=== PATIENT | male | born 1985 | race Caucasian/White ===

== ENCOUNTER 2017-01-07 09:58 | Inpatient (IN) | payer OTHER ==
[2017-01-07] MEDS ORDERED: ONDANSETRON 4 MG/2 ML VIAL IVPB ONE (10:24)
[2017-01-07] MEDS ORDERED: FAMOTIDINE 20 MG/50 ML IVPB 50 ML IVPB ONE (10:24)
[2017-01-07] MEDS ORDERED: ACETAMINOPHEN 1000 MG/100 ML VIAL (NON FORMULARY) IVPB ONE (10:24)
[2017-01-07] MEDS ORDERED: SODIUM CHLORIDE 1,000 ML IV STA (10:24)
[2017-01-07] MEDS ORDERED: MAG HYDROX/AL HYDROX/SIMETH 30 ML UNIT-DOSE CUP PO ONE (10:24)
--- NOTE | 2017-01-07 10:43 | PDOC ---
History of Present Illness - General History Source: Patient Exam Limitations: No Limitations - History of Present Illness Initial Comments: 01/07/17 11:00 Patient is a 31-year-old male with significant past medical history of Suboxone (discontinued), asthma, Lung collapse (March 2016) who presents to the ED with complaints of with Stomach pain, nausea, vomiting and diarrhea beginning yesterday. Patient reports right upper quadrant abdominal pain beginning yesterday secondary to 2 episodes of diarrhea and multiple episodes of vomiting. Patient states he went to [facility] where he was given a CAT scan of his head and a CAT of his abdomen and was reported negative. He states that the stomach pain radiates into his chest. Patient reports potential contact with sick neighbors in apartment building. Denies shortness of breath, dizziness. Denies traveling, recent drug use. Denies history of gallbladder complications. Allergies: Penicillin <Asher Harman - Last Filed: 01/07/17 11:00> - General History Source: Patient Exam Limitations: No Limitations <Fransico Vega - Last Filed: 01/07/17 14:29> - General Chief Complaint: Pain Stated Complaint: VOMITING Time Seen by Provider: 01/07/17 10:14 Past History <Asher Harman - Last Filed: 01/07/17 11:00> - Past Medical History Asthma: Yes - Surgical History Lung Surgery: Yes (rt.side lung) - Psycho/Social/Smoking Cessation Hx Suicidal Ideation: No Smoking History: Current every day smoker Have you smoked in the past 12 months: Yes Number of Cigarettes Smoked Daily: 6 Information on smoking cessation initiated: No Hx Alcohol Use: No Drug/Substance Use Hx: No <Fransico Vega - Last Filed: 01/07/17 14:29> - Past Medical History Allergies/Adverse Reactions: Allergies Allergy/AdvReac Type Severity Reaction Status Date / Time Penicillins Allergy Verified 01/07/17 10:32 Home Medications: Ambulatory Orders NK [No Known Home Medication] 01/07/17 Review of Systems - Review of Systems Able to Perform ROS?: Yes Comments:: 01/07/17 11:00 GENERAL/CONSTITUTIONAL: No fever or chills. No weakness. HEAD, EYES, EARS, NOSE AND THROAT: No change in vision. No ear pain or discharge. No sore throat. CARDIOVASCULAR: + Chest pain No shortness of breath. RESPIRATORY: No cough, wheezing, or hemoptysis. GASTROINTESTINAL: + Nausea, + Vomiting, + Diarrhea. No constipation. GENITOURINARY: No dysuria, frequency, or change in urination. MUSCULOSKELETAL: + Abdominal pain No joint or muscle swelling or pain. No neck or back pain. SKIN: No rash NEUROLOGIC: No headache, vertigo, loss of consciousness, or change in strength/ sensation. ENDOCRINE: No increased thirst. No abnormal weight change. HEMATOLOGIC/LYMPHATIC: No anemia, easy bleeding, or history of blood clots. ALLERGIC/IMMUNOLOGIC: No hives or skin allergy. All Other Systems: Reviewed and Negative <Asher Harman - Last Filed: 01/07/17 11:00> *Physical Exam - Vital Signs Last Vital Signs Temp Pulse Resp BP Pulse Ox 98.8 F 105 H 18 148/67 99 01/07/17 10:13 01/07/17 10:13 01/07/17 10:13 01/07/17 10:13 01/07/17 10:13 - Physical Exam Comments: 01/07/17 11:00 GENERAL: Awake, alert, and fully oriented, in no acute distress HEAD: No signs of trauma EYES: PERRLA, EOMI, sclera anicteric, conjunctiva clear ENT: Auricles normal inspection, hearing grossly normal, nares patent, oropharynx clear without exudates. Moist mucosa NECK: Normal ROM, supple, no lymphadenopathy, JVD, or masses LUNGS: Breath sounds equal, clear to auscultation bilaterally. No wheezes, and no crackles HEART: Regular rate and rhythm, normal S1 and S2, no murmurs, rubs or gallops ABDOMEN: + Right Upper Quadrant Pain. + Tender to palpation. + Chung's sign positive. Soft, nontender, normoactive bowel sounds. No guarding, no rebound. No masses EXTREMITIES: Normal range of motion, no edema. No clubbing or cyanosis. No cords, erythema, or tenderness NEUROLOGICAL: Cranial nerves II through XII grossly intact. Normal speech, normal gait SKIN: Warm, Dry, normal turgor, no rashes or lesions noted. <Asher Harman - Last Filed: 01/07/17 11:00> - Vital Signs Last Vital Signs Temp Pulse Resp BP Pulse Ox 98.8 F 105 H 18 148/67 99 01/07/17 10:13 01/07/17 10:13 01/07/17 10:13 01/07/17 10:13 01/07/17 10:13 <Fransico Vega - Last Filed: 01/07/17 14:29> ED Treatment Course - LABORATORY CBC & Chemistry Diagram: 01/07/17 10:26 01/07/17 10:26 - Medications Given in the ED: ED Medications Discontinued Medications Generic Name Dose Route Start Last Admin Trade Name David PRN Reason Stop Dose Admin Al Hydroxide/Mg Hydroxide 30 ml 01/07/17 10:24 01/07/17 10:52 Mylanta Oral Suspension - PO 01/07/17 10:25 30 ml ONCE ONE Administration Famotidine/Sodium Chloride 50 mls @ 100 mls/hr 01/07/17 10:24 01/07/17 10:53 Pepcid 20 Mg Premixed Ivpb - IVPB 01/07/17 10:53 100 mls/hr ONCE ONE Administration Ondansetron HCl 4 mg 01/07/17 10:24 01/07/17 10:53 Zofran Injection IVPB 01/07/17 10:25 4 mg ONCE ONE Administration <Asher Harman - Last Filed: 01/07/17 11:00> - LABORATORY CBC & Chemistry Diagram: 01/07/17 10:26 01/07/17 10:26 - RADIOLOGY Radiology Studies Ordered: Category Date Time Status CHEST X-RAY PORTABLE* [RAD] Stat Radiology 01/07/17 10:25 Ordered <Fransico Vega - Last Filed: 01/07/17 14:29> Medical Decision Making - Medical Decision Making 01/07/17 10:28 A portion of this note was documented by scribe services under my direction. I have reviewed the details of the note, within reason, and agree with the documentation with the following case summary and management plan written by me. Patient treated in the ED. Nursing notes are reviewed and incorporated into the medical decision-making. Vital signs reviewed. Peripheral IV access obtained by the nurse, laboratory studies are drawn and sent, reviewed and interpreted by myself. Vital Signs Temp Pulse Resp BP Pulse Ox 98.8 F 105 H 18 148/67 99 01/07/17 10:13 01/07/17 10:13 01/07/17 10:13 01/07/17 10:13 01/07/17 10:13 31-year-old male patient with past medical history of Suboxone use now discontinued, history of asthma and history of spontaneous right-sided pneumothorax several months ago presents with upper abdominal pain and nausea and vomiting and diarrhea since yesterday. Patient is started developing severe upper abdominal pain with 2 episodes of loose stools and multiple episodes of vomiting. Denies fevers or chills. Stated that he developed right sided upper abdominal pain. He went to [facility] where he was reportedly obtain a CAT scan of the head and CAT scan of the abdomen pelvis which was reportedly negative. However, patient continues to have persistent pain. States that the pain radiates into his chest. Believes that there may be potential sick contacts with a friend. He is unaware of any history of gallstones. Denies any recent drug use. Differential includes gastroenteritis, pancreatitis, cholecystitis. We'll obtain labs, treat symptoms and give IV fluids. We'll also obtain a right upper quadrant showed reassess. 01/07/17 13:37 CBC, BMP 01/07/17 10:26 01/07/17 10:26 CMP Sodium 139 mmol/L (136-145) 01/07/17 10:26 Potassium 4.3 mmol/L (3.5-5.1) 01/07/17 10:26 Chloride 103 mmol/L (98-107) 01/07/17 10:26 Carbon Dioxide 29 mmol/L (21-32) 01/07/17 10:26 Anion Gap 7 (8-16) L 01/07/17 10:26 BUN 15 mg/dL (7-18) 01/07/17 10:26 Creatinine 1.2 mg/dL (0.7-1.3) 01/07/17 10:26 Creat Clearance w eGFR > 60 (>60) 01/07/17 10:26 Random Glucose 112 mg/dL (74-106) H 01/07/17 10:26 Calcium 9.7 mg/dL (8.5-10.1) 01/07/17 10:26 Phosphorus 1.1 mg/dL (2.5-4.9) L* 01/07/17 10:26 Magnesium 2.1 mg/dL (1.8-2.4) 01/07/17 10:26 Total Bilirubin 0.9 mg/dL (0.2-1.0) 01/07/17 10:26 AST 46 U/L (15-37) H 01/07/17 10:26 ALT 36 U/L (12-78) 01/07/17 10:26 Alkaline Phosphatase 63 U/L (45-117) 01/07/17 10:26 Total Protein 7.6 g/dl (6.4-8.2) 01/07/17 10:26 Albumin 4.2 g/dl (3.4-5.0) 01/07/17 10:26 Lipase 128 U/L (73-393) 01/07/17 10:26 Urine Test Results Urine Color Yellow 01/07/17 10:26 Urine Appearance Clear 01/07/17 10:26 Urine pH 7.0 (5.0-8.0) 01/07/17 10:26 Urine Protein Negative (NEGATIVE) 01/07/17 10:26 Urine Glucose (UA) Negative (NEGATIVE) 01/07/17 10:26 Urine Ketones Trace (NEGATIVE) H 01/07/17 10:26 Urine Blood Negative (NEGATIVE) 01/07/17 10:26 Urine Nitrite Negative (NEGATIVE) 01/07/17 10:26 Urine Bilirubin Negative (NEGATIVE) 01/07/17 10:26 Ur Leukocyte Esterase Negative (NEGATIVE) 01/07/17 10:26 Labs reviewed. Phos 1.1. PhosK repletion ordered. Pt continues to have persistent nausea and vomiting and abdominal pain despite the medications. RUQ ultrasound demonstrates no acute findings. I had called and spoken to Dr. Son from [facility]. The patient had a head CT which was negative. The patient had an abdominal KUB which showed mild dilated loops in left upper abdominal pain. Subsequently, had a CT abdomen and pelvis obtained with contrast (in the evening) which was negative. Given the patient has persistent pain and not improved, decision was made to obtain a repeat abdomen and pelvis CT abdomen and pelvis. 01/07/17 14:27 CT shows colitis and pulmonary nodule. Results given to the patient. He is aware of both findings. IV levaquin and flagyl ordered. I instructed the patient that this is likely infectious but cannot rule out IBD. Pt verbalizes understanding. Unable to tolerate PO. Case was discussed with [facility] hospitalist. Will admit to med/surg admission. <Fransico Vega - Last Filed: 01/07/17 14:29> *DC/Admit/Observation/Transfer - Attestations Scribe Attestion: 01/07/17 11:01 Documentation prepared by Asher Harman, acting as veterinary medical officer for Fransico Vega MD. <Asher Harman - Last Filed: 01/07/17 11:00> - Discharge Dispostion Admit: Yes <Fransico Vega - Last Filed: 01/07/17 14:29> Diagnosis at time of Disposition: Colitis - Discharge Dispostion Condition at time of disposition: Stable
[2017-01-07 10:53] LABS: BASOPHIL 0.4 % (0-2.0); EOSINOPHIL 0.6 % (0-4.5); MCH 30.2 pg (25.7-33.7); MCHC 33.2 g/dl (32.0-35.9); MEAN CELL VOLUME 91.1 fl (80-96); MEAN PLT VOLUME 8.4 fl (7.5-11.1); PLATELET COUNT 295 K/MM3 (134-434); RDW 14.1 % (11.9-15.9); WHITE BLOOD COUNT 9.1 K/mm3 (4.0-10.0)
[2017-01-07] MEDS: SUCRALFATE 1 GM TABLET (FP) PO SCH ×2 (10:53→21:39)
[2017-01-07] MEDS ORDERED: MAG HYDROX/AL HYDROX/SIMETH 30 ML UNIT-DOSE CUP ONE (10:55)
[2017-01-07 11:22] LABS: ALBUMIN 4.2 g/dl (3.4-5.0); ANION GAP 7 (8-16); BILIRUBIN,TOTAL 0.9 mg/dL (0.2-1.0); CALCIUM 9.7 mg/dL (8.5-10.1); CO2 29 mmol/L (21-32); CREATININE 1.2 mg/dL (0.7-1.3); GLUCOSE,RANDOM 112 mg/dL (74-106); MAGNESIUM 2.1 mg/dL (1.8-2.4); SGOT/AST 46 U/L (15-37); SGPT/ALT 36 U/L (12-78); TOT PROT 7.6 g/dl (6.4-8.2)
[2017-01-07 11:26] LABS: URINE APPEARANCE CLEAR; URINE BILIRUBIN NEGATIVE (NEGATIVE); URINE BLOOD NEGATIVE (NEGATIVE); URINE GLUCOSE (UA) NEGATIVE (NEGATIVE); URINE KETONE TRACE (NEGATIVE); URINE LEUK ESTERASE NEGATIVE (NEGATIVE); URINE NITRITE NEGATIVE (NEGATIVE); URINE PROTEIN NEGATIVE (NEGATIVE); URINE UROBILINOGEN 0.2 mg/dL (0.2-1.0)
[2017-01-07 11:28] LABS: ALK PHOS 63 U/L (45-117)
[2017-01-07 11:34] LABS: PHOSPHOROUS 1.1 mg/dL (2.5-4.9)
[2017-01-07 11:35] LABS: URINE COLOR YELLOW
[2017-01-07] MEDS ORDERED: NAPH,MB-DB/K PH,MBDB POWDER PACKET PO ONE (11:36)
[2017-01-07] MEDS ORDERED: METOCLOPRAMIDE HCL INJECTION 10 MG/2 ML VIAL IVPB ONE (12:11)
[2017-01-07] MEDS ORDERED: METOCLOPRAMIDE HCL INJECTION 10 MG/2 ML VIAL ONE (12:15)
[2017-01-07] MEDS ORDERED: PANTOPRAZOLE SODIUM 40 MG in SODIUM CHLORIDE 100 ML IVPB ONE (12:20)
[2017-01-07] MEDS ORDERED: PANTOPRAZOLE SODIUM 100 ML IVPB ONE (12:46)
[2017-01-07] MEDS ORDERED: METRONIDAZOLE 500 MG PREMIXED 100 ML IVPB ONE ×2 (13:55→14:08)
[2017-01-07] MEDS ORDERED: LEVOFLOXACIN 500 MG IVPB 100 ML IVPB ONE ×2 (13:55→14:08)
[2017-01-07] MEDS: SODIUM CHLORIDE 1,000 ML IV SCH (14:16)
[2017-01-07] MEDS ORDERED: ACETAMINOPHEN 325 MG TABLET (FP) PO PRN (14:32)
[2017-01-07] MEDS ORDERED: ONDANSETRON 4 MG/2 ML VIAL IVPB PRN (14:32)
[2017-01-07] MEDS ORDERED: DEXTROSE 5%-0.45% SALINE 1,000 ML IV SCH (14:45)
--- NOTE | 2017-01-07 16:12 | HP ---
CHIEF COMPLAINT: stomach pain and vomiting. PCP: none HISTORY OF PRESENT ILLNESS: 31 yo M with significant PMHx of asthma, suboxone(discontinued one month ago), Lung collapse (), presents to ER with two day history of abdominal pain , nausea, vomiting and diarrhea. Patient initially went yesterday for right upper quadrant pain to [facility] where CT abdomen and head were both reportedly negative. Patient was discharged home. He continue to have vomiting which he describes as "yellow and thick".He also has had approx 6-8 loose non bloody BM's. He describes his pain as sharp 8/10 Right upper quadrant pain that radiates to right chest. No alleviating factors and aggravated by movement. No history of gallbladder. He denies any association with food but is unable to hold any food down. He also endorses bilateral elbow pain and soreness. He denies any fever, chills, sick contacts or recent antibiotic use. He also mentions that he has been having sex with HIV positive girlfriend for which he has used protection. Denies CP, DUNHAM, SOB, or palpitations. ER course was notable for: (1)CT abdomen shows diffuse colitis of splenic flexure into the rectosigmoid colonm with mild pericolonic fat stranding. (2)RUQ US was negative for stones of acute cholecystitis. (3)Given Levaquin and Flagyl x1 (4)CT abdomen also showed 8mm nodular opacity of anterior right lung base which is located along the oblique fissure. Recent Travel: He is in [employer] and just returned from 3 day stay in [facility]. PAST MEDICAL HISTORY: asthma, suboxone(discontinued one month ago), Lung collapse PAST SURGICAL HISTORY: Chest tube (2015) Social History: Smoking: smokes 5 cig/day Alcohol:few beers/day Drugs: smokes marijuana occasionally and previously snorted heroin 5yrs ago and recently stopped suboxone one month ago. Family History: Mother(DM and HTN) Father(DM) Allergies Penicillins Allergy (Verified 01/07/17 10:32) HOME MEDICATIONS: Home Medications Medication Instructions Recorded NK [No Known Home Medication] 01/07/17 REVIEW OF SYSTEMS CONSTITUTIONAL: Absent: fever, chills, diaphoresis, generalized weakness, malaise, loss of appetite, weight change HEENT: Absent: rhinorrhea, nasal congestion, throat pain, throat swelling, difficulty swallowing, mouth swelling, ear pain, eye pain, visual changes CARDIOVASCULAR: Absent: chest pain, syncope, palpitations, irregular heart rate, lightheadedness , peripheral edema RESPIRATORY: Absent: cough, shortness of breath, dyspnea with exertion, orthopnea, wheezing, stridor, hemoptysis GASTROINTESTINAL:abdominal pain, nausea, vomiting, diarrhea Absent: , abdominal distension, , constipation, melena, hematochezia GENITOURINARY: Absent: dysuria, frequency, urgency, hesitancy, hematuria, flank pain, genital pain MUSCULOSKELETAL: joint swelling(elbows bilaterally) Absent: myalgia, arthralgia, , back pain, neck pain SKIN: Absent: rash, itching, pallor HEMATOLOGIC/IMMUNOLOGIC: Absent: easy bleeding, easy bruising, lymphadenopathy, frequent infections ENDOCRINE: Absent: unexplained weight gain, unexplained weight loss, heat intolerance, cold intolerance NEUROLOGIC: Absent: headache, focal weakness or paresthesias, dizziness, unsteady gait, seizure, mental status changes, bladder or bowel incontinence PSYCHIATRIC: Absent: anxiety, depression, suicidal or homicidal ideation, hallucinations. PHYSICAL EXAMINATION Vital Signs - 24 hr 01/07/17 15:31 Temperature 99.7 F H Pulse Rate [ 90 Left Apical] Respiratory 18 Rate Blood Pressure 129/78 [Left Arm] O2 Sat by Pulse 100 Oximetry (%) GENERAL: Awake, alert, and fully oriented, mild distress. HEAD: Normal with no signs of trauma. EYES: Pupils equal, round and reactive to light, extraocular movements intact, sclera anicteric, conjunctiva clear. No lid lag. EARS, NOSE, THROAT: Ears normal, nares patent, oropharynx clear without exudates.Dry mucous membranes. NECK: Normal range of motion, supple without lymphadenopathy, JVD, or masses. LUNGS: Decreased breath sounds right lung base. No wheezes, and no crackles. No accessory muscle use. HEART: Regular rate and rhythm, normal S1 and S2 without murmur, rub or gallop. ABDOMEN: Soft,RUQ tenderness,(+Chung), not distended, normoactive bowel sounds , no guarding, no rebound, no masses. No hepatomegaly or splenomegaly. ALBA: NO stool or blood in rectal vault. MUSCULOSKELETAL: Normal range of motion at all joints. No bony deformities or tenderness. No CVA tenderness. UPPER EXTREMITIES: 2+ pulses, warm, well-perfused. No cyanosis. No clubbing. No peripheral edema. LOWER EXTREMITIES: 2+ pulses, warm, well-perfused. No calf tenderness. No peripheral edema. NEUROLOGICAL: Cranial nerves II-XII intact. Normal speech. gait not observed. PSYCHIATRIC: Cooperative. Good eye contact. Appropriate mood and affect. SKIN: Warm, dry, normal turgor, no rashes or lesions noted, normal capillary refill. Laboratory Tests 01/07/17 01/07/17 01/07/17 10:26 10:26 10:26 WBC 9.1 RBC 4.86 Hgb 14.7 Hct 44.3 MCV 91.1 MCH 30.2 MCHC 33.2 RDW 14.1 Plt Count 295 MPV 8.4 Neutrophils % 74.0 Lymphocytes % 19.7 Monocytes % 5.3 Eosinophils % 0.6 Basophils % 0.4 Sodium 139 Potassium 4.3 Chloride 103 Carbon Dioxide 29 Anion Gap 7 L BUN 15 Creatinine 1.2 Creat Clearance w eGFR > 60 Random Glucose 112 H Calcium 9.7 Phosphorus 1.1 L* Magnesium 2.1 Total Bilirubin 0.9 AST 46 H ALT 36 Alkaline Phosphatase 63 Total Protein 7.6 Albumin 4.2 Lipase 128 Urine Color Yellow Urine Appearance Clear Urine pH 7.0 Ur Specific [place] 1.020 Urine Protein Negative Urine Glucose (UA) Negative Urine Ketones Trace H Urine Blood Negative Urine Nitrite Negative Urine Bilirubin Negative Urine Urobilinogen 0.2 Ur Leukocyte Esterase Negative IMAGING: * [id number] CT/ABDOMEN PELVIS CT W/O CONTR EXAM: CT ABDOMEN AND PELVIS WITHOUT IV CONTRAST. INDICATION: Epigastric abdominal pain. TECHNIQUE: Contiguous axial CT images of the abdomen and pelvis were obtained with oral contrast and without intravenous contrast. Coronal and sagittal reconstructions obtained. COMPARISON: No priors CT abdomen/pelvis. Correlation made to the right upper quadrant ultrasound performed on the same day. FINDINGS: Evaluation of the solid viscera, vessels and lymph nodes is limited without contrast. There is linear scarring versus atelectasis in the right middle lobe and right lower lobe. There is a 4 mm solid nodule in the lateral segment of the right middle lobe (image 12 of series 4). There is a pleural-based 8 mm nodular opacity in the anterior right lung base (image 7 of series 4) , which is located along the oblique fissure. Although nonspecific, this 8 mm nodule could represent an intraparenchymal lymph node. The heart is normal in size. The liver is normal in size and contour. The gallbladder is not pathologically distended. The common bile duct is not dilated. The unopacified pancreas is unremarkable. The spleen is normal in size. There is no mass in the adrenal glands. The kidneys are normal in size without hydronephrosis. There is no renal or ureteral calculus. Difficult to assess the retroperitoneum for lymphadenopathy or soft tissue mass due to lack of intravenous contrast and paucity of fat. The abdominal aorta does however to be of normal caliber. There is long segment annular wall thickening throughout the majority of the colon, which is most notable from the splenic flexure into the rectosigmoid junction, with mild pericolonic fat stranding. Multiple volume of free fluid in pelvis is presumably reactive. There is a normal- appearing appendix in the right lower quadrant. There is no gross free intraperitoneal air. There is circumferential thickening of the urinary bladder wall, some of which may be attributed to under distention. The prostate gland is nonenlarged. There is no acute fracture in the visualized osseous structures. Punctate enostosis noted in the intertrochanteric region of the proximal left femur and also within the posterior left iliac bone. IMPRESSION: 1. Colitis involving the majority of the colon as described above. This may be due to infectious or inflammatory etiology. C. Difficile colitis may be considered in the appropriate clinical setting. Please correlate clinically. 2. Circumferential thickening of the urinary bladder wall may be due to under distention and/or cystitis. Please correlate clinically with urinalysis. 3. Nonspecific right middle lobe and right lower lobe pulmonary nodular opacities measuring up to 8 mm, as described above. Continued follow-up with low-dose chest CT is recommended. Reported By: Eunice Zhao MD 01/07/17 2999 ASSESSMENT/PLAN: 31 yo M with significant PMHx of asthma, suboxone(discontinued one month ago), Lung collapse () admitted to [facility] for acute colitis. Problem List - Problem (1) Colitis Assessment/Plan: * CT shows acute colitis - inflammatory vs. infectious. * NO fever or white counts. * Will send stool studies including C-diff for antigen and ab * Started on Levaquin and Flagyl in ED. * WIll consult GI seen by Dr. Garcia at [facility] - last EGD and Colonoscopy done in 2015 * NPO for now (2) Lung nodule Assessment/Plan: * CT abdomen reveled 8mm nodule * Will consult pulmonary for further w/u (3) Hypophosphatemia Assessment/Plan: * will replete with IV NaPhos . * Repeat lab in AM Visit type - Emergency Visit Emergency Visit: Yes ED Registration Date: 01/07/17 Care time: The patient presented to the Emergency Department on the above date and was hospitalized for further evaluation of their emergent condition. - New Patient This patient is new to me today: Yes Date on this admission: 01/07/17 - Critical Care Critical Care patient: No
[2017-01-07 16:21] VITALS: BMI 18.3
[2017-01-07] MEDS ORDERED: PNEUMOC 13-VAL CONJ-DIP CRM/PF 0.5 ML DISP.SYRIN IM ONE (16:21)
--- NOTE | 2017-01-07 17:21 | PN ---
Teaching Attending Note Name of Resident: Raphael Nelson ATTENDING PHYSICIAN STATEMENT I saw and evaluated the patient. I reviewed the resident's note and discussed the case with the resident. I agree with the resident's findings and plan as documented. SUBJECTIVE: c/o having an abdominal pain. OBJECTIVE: Vital Signs Temperature 98.4 F 01/07/17 15:58 Pulse Rate 56 L 01/07/17 15:58 Respiratory Rate 18 01/07/17 15:58 Blood Pressure 146/76 01/07/17 15:58 O2 Sat by Pulse Oximetry (%) 94 L 01/07/17 16:00 CBCD WBC 9.1 K/mm3 (4.0-10.0) 01/07/17 10:26 RBC 4.86 M/mm3 (4.00-5.60) 01/07/17 10:26 Hgb 14.7 GM/dL (11.7-16.9) 01/07/17 10:26 Hct 44.3 % (35.4-49) 01/07/17 10:26 MCV 91.1 fl (80-96) 01/07/17 10:26 MCHC 33.2 g/dl (32.0-35.9) 01/07/17 10:26 RDW 14.1 % (11.9-15.9) 01/07/17 10:26 Plt Count 295 K/MM3 (134-434) 01/07/17 10:26 MPV 8.4 fl (7.5-11.1) 01/07/17 10:26 CMP Sodium 139 mmol/L (136-145) 01/07/17 10:26 Potassium 4.3 mmol/L (3.5-5.1) 01/07/17 10:26 Chloride 103 mmol/L (98-107) 01/07/17 10:26 Carbon Dioxide 29 mmol/L (21-32) 01/07/17 10:26 Anion Gap 7 (8-16) L 01/07/17 10:26 BUN 15 mg/dL (7-18) 01/07/17 10:26 Creatinine 1.2 mg/dL (0.7-1.3) 01/07/17 10:26 Creat Clearance w eGFR > 60 (>60) 01/07/17 10:26 Random Glucose 112 mg/dL (74-106) H 01/07/17 10:26 Calcium 9.7 mg/dL (8.5-10.1) 01/07/17 10:26 Total Bilirubin 0.9 mg/dL (0.2-1.0) 01/07/17 10:26 AST 46 U/L (15-37) H 01/07/17 10:26 ALT 36 U/L (12-78) 01/07/17 10:26 Alkaline Phosphatase 63 U/L (45-117) 01/07/17 10:26 Total Protein 7.6 g/dl (6.4-8.2) 01/07/17 10:26 Albumin 4.2 g/dl (3.4-5.0) 01/07/17 10:26 Current Medications Generic Name Dose Route Start Last Admin Trade Name Freq PRN Reason Stop Dose Admin Acetaminophen 650 mg 01/07/17 14:32 Tylenol - PO Q4H PRN FEVER OR PAIN Sodium Chloride 1,000 mls @ 125 mls/hr 01/07/17 14:00 01/07/17 14:16 Normal Saline - IV 125 mls/hr ASDIR TERRY Administration Ondansetron HCl 4 mg 01/07/17 14:32 Zofran Injection IVPB Q6H PRN NAUSEA Pneumococcal 13-Valent Conj Vacc 0.5 ml 01/07/17 16:21 Prevnar 13 Syringe - IM 01/07/17 16:22 .ONCE ONE Sucralfate 1 gm 01/07/17 10:30 01/07/17 10:53 Carafate - PO 1 gm BID TERRY Administration Home Medications Medication Instructions Recorded NK [No Known Home Medication] 01/07/17 2002-1997 CT/ABDOMEN PELVIS CT W/O CONTR EXAM: CT ABDOMEN AND PELVIS WITHOUT IV CONTRAST. INDICATION: Epigastric abdominal pain. TECHNIQUE: Contiguous axial CT images of the abdomen and pelvis were obtained with oral contrast and without intravenous contrast. Coronal and sagittal reconstructions obtained. COMPARISON : No priors CT abdomen/pelvis. Correlation made to the right upper quadrant ultrasound performed on the same day. FINDINGS: Evaluation of the solid viscera , vessels and lymph nodes is limited without contrast. There is linear scarring versus atelectasis in the right middle lobe and right lower lobe. There is a 4 mm solid nodule in the lateral segment of the right middle lobe (image 12 of series 4). There is a pleural-based 8 mm nodular opacity in the anterior right lung base (image 7 of series 4) , which is located along the oblique fissure. Although nonspecific, this 8 mm nodule could represent an intraparenchymal lymph node. The heart is normal in size. The liver is normal in size and contour. The gallbladder is not pathologically distended. The common bile duct is not dilated. The unopacified pancreas is unremarkable. The spleen is normal in size. There is no mass in the adrenal glands. The kidneys are normal in size without hydronephrosis. There is no renal or ureteral calculus. Difficult to assess the retroperitoneum for lymphadenopathy or soft tissue mass due to lack of intravenous contrast and paucity of fat. The abdominal aorta does however to be of normal caliber. There is long segment annular wall thickening throughout the majority of the colon, which is most notable from the splenic flexure into the rectosigmoid junction, with mild pericolonic fat stranding. Multiple volume of free fluid in pelvis is presumably reactive. There is a normal- appearing appendix in the right lower quadrant. There is no gross free intraperitoneal air. There is circumferential thickening of the urinary bladder wall, some of which may be attributed to under distention. The prostate gland is nonenlarged. There is no acute fracture in the visualized osseous structures. Punctate enostosis noted in the intertrochanteric region of the proximal left femur and also within the posterior left iliac bone. IMPRESSION: 1. Colitis involving the majority of the colon as described above. This may be due to infectious or inflammatory etiology. C. Difficile colitis may be considered in the appropriate clinical setting. Please correlate clinically. 2. Circumferential thickening of the urinary bladder wall may be due to under distention and/or cystitis. Please correlate clinically with urinalysis. 3. Nonspecific right middle lobe and right lower lobe pulmonary nodular opacities measuring up to 8 mm, as described above. Continued follow-up with low-dose chest CT is recommended. Reported By: Eunice Zhao MD 01/07/17 1350 PE: per resident's note Abdomen: soft, nt, NR,ND ASSESSMENT AND PLAN: 31 yo M with significant PMHx of asthma, suboxone(discontinued one month ago), Lung collapse () admitted to [facility] for acute colitis. # Acute Colitis on IV antibiotic Levaquin/Flagyl, IVF. # Lung nodule CT abdomen reveled 8mm nodule ,Will consult pulmonary for further w/u # Acute severe hypophosphotemia on Sodium Phos rider DVT Px: SCd
[2017-01-07] MEDS ORDERED: SODIUM PHOSPHATE - 30 MM in DEXTROSE 5%-WATER - 250 ML IVPB ONE (19:30)
[2017-01-07] MEDS ORDERED: PNEUMOCOCCAL 23 VACCINE 0.5 ML VIAL IM ONE (20:00)
[2017-01-07 21:22] LABS: URINE MARIJUANA THC NEGATIVE ng/ml (CUTOFF=50)
[2017-01-07 22:03] LABS: HIV 1 & 2 AB NEGATIVE; HIV 1 AGp24 NEGATIVE
[2017-01-08] MEDS ORDERED: ONDANSETRON 4 MG/2 ML VIAL IVPB ONE (06:50)
[2017-01-08 07:58] LABS: BASOPHIL 0.3 % (0-2.0); EOSINOPHIL 1.4 % (0-4.5); MCH 30.4 pg (25.7-33.7); MCHC 33.6 g/dl (32.0-35.9); MEAN CELL VOLUME 90.5 fl (80-96); MEAN PLT VOLUME 8.3 fl (7.5-11.1); NEUTROPHILS 59.6 % (42.8-82.8); PLATELET COUNT 284 K/MM3 (134-434); WHITE BLOOD COUNT 9.4 K/mm3 (4.0-10.0)
[2017-01-08 08:28] LABS: ALBUMIN 3.9 g/dl (3.4-5.0); CALCIUM 9.1 mg/dL (8.5-10.1)
[2017-01-08 08:42] LABS: ALK PHOS 57 U/L (45-117); ANION GAP 11 (8-16); CO2 25 mmol/L (21-32); GLUCOSE,RANDOM 112 mg/dL (74-106); PHOSPHOROUS 3.3 mg/dL (2.5-4.9); SGOT/AST 37 U/L (15-37); SGPT/ALT 29 U/L (12-78); THYROID STIMULATING HORMONE 0.72 uIU/ml (0.358-3.74); TOT PROT 6.9 g/dl (6.4-8.2)
[2017-01-08] MEDS: SUCRALFATE 1 GM TABLET (FP) PO SCH ×2 (09:18→23:06)
--- NOTE | 2017-01-08 11:26 | CON.PULM ---
Consult Consult Specialty:: PULMONARY Referred by:: Dr. Betancourt Reason for Consultation:: r/o lung nodule - History of Present Illness Chief Complaint: abdominal pain History of Present Illness: 31yo male with h/o asthma, spontaneous pneumothorax s/p chest tube placement in 03/2016 who was admitted for abdominal pain and diarrhea. Being treated for colitis, during work up a CT A/P was performed which showed an incomplete right sided nodule. Pt denies any shortness of breath, cough or wheezing. No fevers, chills or night sweats. He is a former smoker but has stopped since the pneumothorax. No family history of malignancies. - History Source History Provided By: Patient, Medical Record Limitations to Obtaining History: No Limitations - Past Medical History Pulmonary: Yes: Other (right pneumothorax) - Alcohol/Substance Use Hx Alcohol Use: Yes (STOP 2 MONTHS AGO DRIN[employer]) - Smoking History Smoking history: Current every day smoker Have you smoked in the past 12 months: Yes Aproximately how many cigarettes per day: 6 Home Medications - Allergies Allergies/Adverse Reactions: Allergies Allergy/AdvReac Type Severity Reaction Status Date / Time Penicillins Allergy Verified 01/07/17 10:32 - Home Medications Home Medications: Ambulatory Orders NK [No Known Home Medication] 01/07/17 Review of Systems - Review of Systems Constitutional: denies: Chills, Fever Eyes: denies: Recent Change in Vision HENT: denies: Nasal Congestion, Throat Pain Neck: denies: Stiffness, Tenderness Cardiovascular: denies: Chest Pain, Edema, Shortness of Breath Respiratory: denies: Cough, Hemoptysis, SOB, Wheezing Gastrointestinal: reports: Abdominal Pain, Diarrhea, Nausea, Vomiting Genitourinary: denies: Dysuria, Hematuria Neurological: denies: Dizziness, Headache Endocrine: denies: Unexplained Weight Loss Physical Exam Vital Sings: Vital Signs Temperature 98.8 F 01/08/17 10:00 Pulse Rate 58 L 01/08/17 10:00 Respiratory Rate 18 01/08/17 10:00 Blood Pressure 140/77 01/08/17 10:00 O2 Sat by Pulse Oximetry (%) 99 01/07/17 21:00 Constitutional: Yes: Calm Eyes: Yes: Conjunctiva Clear, EOM Intact HENT: Yes: Atraumatic, Normocephalic Neck: Yes: Supple, Trachea Midline Cardiovascular: Yes: Regular Rate and Rhythm Respiratory: Yes: Regular, CTA Bilaterally ...Clubbing: No Gastrointestinal: Yes: Normal Bowel Sounds, Soft. No: Tenderness Edema: No Labs: CBC, BMP 01/08/17 06:00 01/08/17 07:00 Imaging - Results Cat Scan: Report Reviewed, Image Reviewed (incomplete cut of nodule along fissure) Problem List - Problems (1) Colitis Code(s): K52.9 - NONINFECTIVE GASTROENTERITIS AND COLITIS, UNSPECIFIED (2) Lung nodule Code(s): R91.1 - SOLITARY PULMONARY NODULE Assessment/Plan Colitis Lung Nodule h/o Spontaneous Pneumothorax - CT A/P did not show the complete nodule, will order dedicated CT chest noncontrast for further evaluation - pt with VATS scars, may have received pleurodesis during the pneumothorax episode which may have caused scarring of the pleura - further recommendations pending above CT chest Thank you for this consult Francois Comer MD
--- NOTE | 2017-01-08 11:58 | EKG ---
Test Reason : Blood Pressure : / mmHG Vent. Rate : 056 BPM Atrial Rate : 056 BPM P-R Int : 130 ms QRS Dur : 086 ms QT Int : 416 ms P-R-T Axes : 075 054 052 degrees QTc Int : 401 ms SINUS BRADYCARDIA MINIMAL VOLTAGE CRITERIA FOR LVH, MAY BE NORMAL VARIANT BORDERLINE ECG WHEN COMPARED WITH ECG OF 23-MAR-2009 17:33, NO SIGNIFICANT CHANGE WAS FOUND Confirmed by SHEIKH JU, LESA ([id number]) on 01/08/2017 11:58:21 AM Referred By: Emily LANGSTON Confirmed By:LESA ACEVEDO MD
--- NOTE | 2017-01-08 14:36 | PN ---
Progress Note (short form) - Note Progress Note: Feels better with no acute distress. Temperature 98.8 F 01/08/17 10:00 Pulse Rate 58 L 01/08/17 10:00 Respiratory Rate 18 01/08/17 10:00 Blood Pressure 140/77 01/08/17 10:00 O2 Sat by Pulse Oximetry (%) 99 01/07/17 21:00 GENERAL: Awake, alert, and fully oriented, mild distress. HEAD: Normal with no signs of trauma. EYES: Pupils equal, round and reactive to light, extraocular movements intact, sclera anicteric, conjunctiva clear. No lid lag. EARS, NOSE, THROAT: Ears normal, nares patent, oropharynx clear without exudates.Dry mucous membranes. NECK: Normal range of motion, supple without lymphadenopathy, JVD, or masses. LUNGS: Decreased breath sounds right lung base. No wheezes, and no crackles. No accessory muscle use. HEART: Regular rate and rhythm, normal S1 and S2 without murmur, rub or gallop. ABDOMEN: Soft,RUQ tenderness,(+Chung), not distended, normoactive bowel sounds , no guarding, no rebound, no masses. No hepatomegaly or splenomegaly. MUSCULOSKELETAL: Normal range of motion at all joints. No bony deformities or tenderness. No CVA tenderness. EXTREMITIES: 2+ pulses, warm, well-perfused. No cyanosis. No clubbing. No peripheral edema. NEUROLOGICAL: Cranial nerves II-XII intact. Normal speech. gait not observed. PSYCHIATRIC: Cooperative. Good eye contact. Appropriate mood and affect. SKIN: Warm, dry, normal turgor, no rashes or lesions noted, normal capillary refill. CBCD WBC 9.4 K/mm3 (4.0-10.0) 01/08/17 06:00 RBC 4.74 M/mm3 (4.00-5.60) 01/08/17 06:00 Hgb 14.4 GM/dL (11.7-16.9) 01/08/17 06:00 Hct 42.9 % (35.4-49) 01/08/17 06:00 MCV 90.5 fl (80-96) 01/08/17 06:00 MCHC 33.6 g/dl (32.0-35.9) 01/08/17 06:00 RDW 14.0 % (11.9-15.9) 01/08/17 06:00 Plt Count 284 K/MM3 (134-434) 01/08/17 06:00 MPV 8.3 fl (7.5-11.1) 01/08/17 06:00 CMP Sodium 138 mmol/L (136-145) 01/08/17 07:00 Potassium 3.8 mmol/L (3.5-5.1) 01/08/17 07:00 Chloride 102 mmol/L (98-107) 01/08/17 07:00 Carbon Dioxide 25 mmol/L (21-32) 01/08/17 07:00 Anion Gap 11 (8-16) 01/08/17 07:00 BUN 6 mg/dL (7-18) L D 01/08/17 07:00 Creatinine 1.0 mg/dL (0.7-1.3) 01/08/17 07:00 Creat Clearance w eGFR > 60 (>60) 01/08/17 07:00 Random Glucose 112 mg/dL (74-106) H 01/08/17 07:00 Calcium 9.1 mg/dL (8.5-10.1) 01/08/17 07:00 Total Bilirubin 1.0 mg/dL (0.2-1.0) 01/08/17 07:00 AST 37 U/L (15-37) 01/08/17 07:00 ALT 29 U/L (12-78) 01/08/17 07:00 Alkaline Phosphatase 57 U/L (45-117) 01/08/17 07:00 Total Protein 6.9 g/dl (6.4-8.2) 01/08/17 07:00 Albumin 3.9 g/dl (3.4-5.0) 01/08/17 07:00 Current Medications Generic Name Dose Route Start Last Admin Trade Name Freq PRN Reason Stop Dose Admin Acetaminophen 650 mg 01/07/17 14:32 01/08/17 04:26 Tylenol - PO 650 mg Q4H PRN Administration FEVER OR PAIN Sodium Chloride 1,000 mls @ 125 mls/hr 01/07/17 14:00 01/07/17 14:16 Normal Saline - IV 125 mls/hr ASDIR TERRY Administration Sucralfate 1 gm 01/07/17 10:30 01/08/17 09:18 Carafate - PO 1 gm BID TERRY Administration Home Medications Medication Instructions Recorded NK [No Known Home Medication] 01/07/17 ASSESSMENT AND PLAN: 31 yo M with significant PMHx of asthma, suboxone(discontinued one month ago), Lung collapse () admitted to [facility] for acute colitis. # Acute Colitis on IVF on IV Levaquin/Flagyl, and IVF # Lung nodule CT abdomen revealed 8mm nodule ,Will consult pulmonary for further w/u, patient is going for further CT to evaluate the the nodule. # Acute severe hypophosphotemia on Sodium Phos rider was 1.0--> now 3.3 DVT Px: SCd Visit type - Emergency Visit Emergency Visit: Yes ED Registration Date: 01/07/17 Care time: The patient presented to the Emergency Department on the above date and was hospitalized for further evaluation of their emergent condition. - New Patient This patient is new to me today: No - Critical Care Critical Care patient: No - Discharge Referral Referred to [facility] No Physician Referral: Mare Jarquin MD ([facility])
[2017-01-08] MEDS: SODIUM CHLORIDE 1,000 ML IV SCH (17:45)
[2017-01-08] MEDS ORDERED: PT OWN MED DRAWER 7, Y5N ONE (22:43)
[2017-01-09] MEDS: SODIUM CHLORIDE 1,000 ML IV SCH (03:40)
[2017-01-09] MEDS: SUCRALFATE 1 GM TABLET (FP) PO SCH (10:37)
--- NOTE | 2017-01-09 11:44 | PN ---
Progress Note (short form) - Note Progress Note: PULMONARY Denies shortness of breath, cough or wheezing. CT chest done but not read yet. Appears to have a nodule in the fissure and postoperative changes from a ? blebectomy. Has another RUL apical bleb. States diarrhea resolved, tolerating PO. Last Vital Signs Temp Pulse Resp BP Pulse Ox 98.1 F 67 18 130/70 96 01/09/17 10:00 01/09/17 10:00 01/09/17 10:00 01/09/17 10:00 01/09/17 09:00 Gen: NAD at rest Heart: RRR Lung: clear to auscultation Abd: soft, nontender Ext: no edema CBC, BMP 01/08/17 06:00 01/08/17 07:00 Active Medications Acetaminophen (Tylenol -) 650 mg PO Q4H PRN PRN Reason: FEVER OR PAIN Last Admin: 01/08/17 04:26 Dose: 650 mg Sodium Chloride (Normal Saline -) 1,000 mls @ 125 mls/hr IV ASDIR TERRY Last Admin: 01/09/17 03:40 Dose: 125 mls/hr Sucralfate (Carafate -) 1 gm PO BID TERRY Last Admin: 01/09/17 10:37 Dose: 1 gm A/P Colitis Lung Nodule h/o Spontaneous Pneumothorax - CT findings with postop changes but does have a nodule in the minor fissure, could be from prior pleurodesis but will need follow up - repeat CT chest in 3 months as outpt - continued smoking cessation - can be discharged from pulmonary standpoint Problem List - Problems (1) Colitis Code(s): K52.9 - NONINFECTIVE GASTROENTERITIS AND COLITIS, UNSPECIFIED (2) Lung nodule Code(s): R91.1 - SOLITARY PULMONARY NODULE
[2017-01-09 14:56] VITALS: BP 143/98; PULSE 62; TEMP 98.8
--- NOTE | 2017-01-09 15:03 | PN ---
Teaching Attending Note Name of Resident: Terrence Jenkins ATTENDING PHYSICIAN STATEMENT I saw and evaluated the patient. I reviewed the resident's note and discussed the case with the resident. I agree with the resident's findings and plan as documented. SUBJECTIVE: Patient is comfortable with no acute distress. No shortness of breath, no nausea or vomiting. OBJECTIVE: Vital Signs Temperature 98.8 F 01/09/17 14:53 Pulse Rate 62 01/09/17 14:53 Respiratory Rate 18 01/09/17 14:53 Blood Pressure 143/98 01/09/17 14:53 O2 Sat by Pulse Oximetry (%) 96 01/09/17 09:00 CBCD WBC 9.4 K/mm3 (4.0-10.0) 01/08/17 06:00 RBC 4.74 M/mm3 (4.00-5.60) 01/08/17 06:00 Hgb 14.4 GM/dL (11.7-16.9) 01/08/17 06:00 Hct 42.9 % (35.4-49) 01/08/17 06:00 MCV 90.5 fl (80-96) 01/08/17 06:00 MCHC 33.6 g/dl (32.0-35.9) 01/08/17 06:00 RDW 14.0 % (11.9-15.9) 01/08/17 06:00 Plt Count 284 K/MM3 (134-434) 01/08/17 06:00 MPV 8.3 fl (7.5-11.1) 01/08/17 06:00 CMP Sodium 138 mmol/L (136-145) 01/08/17 07:00 Potassium 3.8 mmol/L (3.5-5.1) 01/08/17 07:00 Chloride 102 mmol/L (98-107) 01/08/17 07:00 Carbon Dioxide 25 mmol/L (21-32) 01/08/17 07:00 Anion Gap 11 (8-16) 01/08/17 07:00 BUN 6 mg/dL (7-18) L D 01/08/17 07:00 Creatinine 1.0 mg/dL (0.7-1.3) 01/08/17 07:00 Creat Clearance w eGFR > 60 (>60) 01/08/17 07:00 Random Glucose 112 mg/dL (74-106) H 01/08/17 07:00 Calcium 9.1 mg/dL (8.5-10.1) 01/08/17 07:00 Total Bilirubin 1.0 mg/dL (0.2-1.0) 01/08/17 07:00 AST 37 U/L (15-37) 01/08/17 07:00 ALT 29 U/L (12-78) 01/08/17 07:00 Alkaline Phosphatase 57 U/L (45-117) 01/08/17 07:00 Total Protein 6.9 g/dl (6.4-8.2) 01/08/17 07:00 Albumin 3.9 g/dl (3.4-5.0) 01/08/17 07:00 Current Medications Generic Name Dose Route Start Last Admin Trade Name Freq PRN Reason Stop Dose Admin Acetaminophen 650 mg 01/07/17 14:32 01/08/17 04:26 Tylenol - PO 650 mg Q4H PRN Administration FEVER OR PAIN Sodium Chloride 1,000 mls @ 125 mls/hr 01/07/17 14:00 01/09/17 03:40 Normal Saline - IV 125 mls/hr ASDIR TERRY Administration Sucralfate 1 gm 01/07/17 10:30 01/09/17 10:37 Carafate - PO 1 gm BID TERRY Administration Home Medications Medication Instructions Recorded NK [No Known Home Medication] 01/07/17 Urine Test Results Urine Color Yellow 01/07/17 10:26 Urine Appearance Clear 01/07/17 10:26 Urine pH 7.0 (5.0-8.0) 01/07/17 10:26 Ur Specific [place] 1.020 (1.005-1.025) 01/07/17 10:26 Urine Protein Negative (NEGATIVE) 01/07/17 10:26 Urine Glucose (UA) Negative (NEGATIVE) 01/07/17 10:26 Urine Ketones Trace (NEGATIVE) H 01/07/17 10:26 Urine Blood Negative (NEGATIVE) 01/07/17 10:26 Urine Nitrite Negative (NEGATIVE) 01/07/17 10:26 Urine Bilirubin Negative (NEGATIVE) 01/07/17 10:26 Ur Leukocyte Esterase Negative (NEGATIVE) 01/07/17 10:26 Urine tox positive for cocaine and barbituates PE: as per resident's notes. ASSESSMENT AND PLAN: 31 yo M with significant PMHx of asthma, suboxone(discontinued one month ago), Lung collapse () admitted to [facility] for acute colitis. # Acute Colitis IV antibiotic Levaquin/Flagyl, IVF completed. # Lung nodule CT abdomen revealed 8mm nodule ,further w/u as an outpatient by pulmonary. repeat CT in 3 months period. # Acute severe hypophosphotemia on Sodium Phos rider was 1.0--> now 3.3, resolved discharge patient home.
--- NOTE | 2017-01-09 20:23 | DS ---
Physical Exam: SUBJECTIVE: Patient seen and examined. No acute events over night. Patient offered no new complaints. Says he is ready to go home. OBJECTIVE: Vital Signs Period Temp Pulse Resp BP Sys/[place] Pulse Ox Last 24 Hr 98.1 F-98.9 F 62-76 18-18 130-143/70-98 96-96 PHYSICAL EXAM GENERAL: The patient is awake, alert, and fully oriented, in no acute distress. HEAD: Normal with no signs of trauma. EYES: conjunctiva clear. ENT: nares patent, oropharynx clear without exudates, moist mucous membranes. NECK: supple. LUNGS: Breath sounds equal, clear to auscultation bilaterally, no wheezes, no crackles, no accessory muscle use. HEART: Regular rate and rhythm, S1, S2 without murmur, rub or gallop. ABDOMEN: Soft, nontender, nondistended, normoactive bowel sounds, no guarding, no rebound, no hepatosplenomegaly, no masses. EXTREMITIES: 2+ pulses, warm, well-perfused, no edema. PSYCH: Normal mood, normal affect. SKIN: Warm, dry, normal turgor, no rashes or lesions noted. LABS HOSPITAL COURSE: Date of Admission:01/07/17 31 yo M with significant PMHx of asthma, drug abuse on suboxone (discontinued one month ago), Lung collapse (), presented to ER with a two day history of abdominal pain, nausea, vomiting and diarrhea. CT abdomen shows diffuse colitis of splenic flexure into the rectosigmoid column with mild pericolonic fat stranding. He was treated with Levaquin and Flagyl. CT abdomen also showed an 8mm nodular opacity of anterior right lung base which is located along the oblique fissure. He was also found to have severe hyperphosphatemia ( 1.1) and was corrected with Sodium phos rider (3.3 upon admission). Pulmonary was consulted (Dr. Comer) and CT chest was repeated to further evaluate the lung nodule. Patient was educated on smoking cessation and was referred to see the transfer agent (Dr. Francois Comer) in 3 months to do repeat a Chest CT scan to follow up the pulmonary nodules. Date of Discharge: 01/09/17 Minutes to complete discharge: 45 Discharge Summary Reason For Visit: VOMITING Condition: Stable - Instructions Diet, Activity, Other Instructions: You will need to follow-up with your lung doctor (Dr.Richard Comer) in 3 months for a follow-up CT scan. Make sure you avoid dehydration by drinking fluids. Continue your home medications. If there is an emergency, please come back to the Emergency room. Referrals: Mare Jarquin MD [Staff Physician] - 1 Week Francois Comer MD, MD [Staff Physician] - 04/11/17 (F/U CT scan) Disposition: HOME - Home Medications Comprehensive Discharge Medication List: Ambulatory Orders NK [No Known Home Medication] 01/07/17 This patient is new to me today: No Emergency Visit: Yes ED Registration Date: 01/07/17 Care time: The patient presented to the Emergency Department on the above date and was hospitalized for further evaluation of their emergent condition. Critical Care patient: No - Discharge Referral Referred to [facility] No Physician Referral: Mare Jarquin MD ([facility])
== END 2017-01-09 15:51 | disposition home or self-care (01) | DRG 249 ==
LOC: JER 09:58 → JERBED 14:29 → J5S 16:28
PROVIDERS: ADMIT Internal Medicine; ATTEND Internal Medicine
DX: K52.89 Other specified noninfective gastroenteritis and colitis (principal); R91.1 Solitary pulmonary nodule; E83.39 Other disorders of phosphorus metabolism; F17.210 Nicotine dependence, cigarettes, uncomplicated; F12.10 Cannabis abuse, uncomplicated; J45.909 Unspecified asthma, uncomplicated; M25.422 Effusion, left elbow; M25.421 Effusion, right elbow; R11.2 Nausea with vomiting, unspecified; Z88.0 Allergy status to penicillin; Z68.1 Body mass index [BMI] 19.9 or less, adult
CPT/HCPCS: 36415; 71010-TC; 71250-TC; 74176-TC; 76705-TC; 80053; 80307; 81003; 82533; 83690; 83735; 84100; 84443; 85025; 86803; 87086; 87177; 87205; 87209; 87324; 87389; 87449; 90732; 93005; 93010; 99284-25; G0009

== ENCOUNTER 2021-12-24 07:41 | Emergency (ER) | payer OTHER ==
[2021-12-24 08:23] VITALS: BMI 21.6
[2021-12-24] MEDS ORDERED: FAMOTIDINE 20 MG/50 ML IVPB 20 MG/50 ML MG IVPB ONE ×2 (08:44→08:51)
[2021-12-24] MEDS ORDERED: SODIUM CHLORIDE 0.9% 500 ML INFUS.BAG IV ONE ×2 (08:44→11:12)
[2021-12-24] MEDS ORDERED: ACETAMINOPHEN 1000 MG/100 ML BAG IVPB ONE (08:44)
[2021-12-24] MEDS ORDERED: ONDANSETRON 4 MG/2 ML VIAL IVPUSH ONE (08:44)
[2021-12-24] MEDS ORDERED: ONDANSETRON 4 MG/2 ML VIAL ONE (08:51)
[2021-12-24] MEDS ORDERED: ACETAMINOPHEN INJECTION 100 ML IVPB ONE (08:51)
[2021-12-24 09:26] LABS: BASO % 0.3 % (0-2.0); HEMATOCRIT 46.6 % (35.4-49); HEMOGLOBIN 15.9 GM/dL (11.7-16.9); LYMPH % 14.3 % (8-40); MCHC 34.2 g/dl (32.0-35.9); MEAN CELL VOLUME 90.7 fl (80-96); MEAN PLT VOLUME 8.1 fl (7.5-11.1); MONO % 4.2 % (3.8-10.2); NEUT % 81.2 % (42.8-82.8); PLATELET COUNT 347 10^3/uL (134-434); RBC 5.14 M/mm3 (4.00-5.60); RDW 14.3 % (11.9-15.9); WHITE BLOOD COUNT 10.6 K/mm3 (4.0-10.0)
[2021-12-24 09:50] LABS: ALBUMIN 4.6 g/dl (3.4-5.0); BLOOD UREA NITROGEN 13.6 mg/dL (7-18); CALCIUM 10.1 mg/dL (8.5-10.1); MAGNESIUM 2.2 mg/dL (1.8-2.4)
[2021-12-24 09:53] LABS: CREATININE 1.3 mg/dL (0.55-1.3); PHOSPHOROUS 1.2 mg/dL (2.5-4.9)
[2021-12-24 09:55] LABS: BILIRUBIN,TOTAL 0.9 mg/dL (0.2-1)
[2021-12-24] MEDS ORDERED: HALOPERIDOL LACTATE 5 MG/ML IM ONE (11:13)
[2021-12-24] MEDS ORDERED: HALOPERIDOL LACTATE 5 MG/ML ONE (11:16)
[2021-12-24 14:24] VITALS: BP 105/55; PULSE 78; RESP 17; TEMP 98.6
== END 2021-12-24 14:35 | disposition home or self-care (01) ==
LOC: JER 07:41
PROC: 3E0333Z Introduction of Anti-inflammatory into Peripheral Vein, Percutaneous Approach (ICD-10-PCS; principal; 2021-12-24)
PROC: 3E033GC Introduction of Other Therapeutic Substance into Peripheral Vein, Percutaneous Approach (ICD-10-PCS; 2021-12-24)
PROC: 3E033GC Introduction of Other Therapeutic Substance into Peripheral Vein, Percutaneous Approach (ICD-10-PCS; 2021-12-24)
PROC: 3E023GC Introduction of Other Therapeutic Substance into Muscle, Percutaneous Approach (ICD-10-PCS; 2021-12-24)
DX: R11.2 Nausea with vomiting, unspecified (principal)
CPT/HCPCS: 36415; 76705-TC; 80053; 83690; 83735; 84100; 85025; 93005; 93010; 99285-25

== ENCOUNTER 2022-02-19 08:53 | Emergency (ER) | payer OTHER ==
[2022-02-19 09:03] VITALS: BP 156/106; PULSE 71; RESP 16; TEMP 98.3; BMI 22.3
[2022-02-19] MEDS ORDERED: ONDANSETRON 4 MG/2 ML VIAL IVPUSH ONE (09:49)
[2022-02-19] MEDS ORDERED: ACETAMINOPHEN 1000 MG/100 ML BAG IVPB ONE (09:49)
[2022-02-19] MEDS ORDERED: SODIUM CHLORIDE 1,000 ML IV STA (09:49)
[2022-02-19] MEDS ORDERED: FAMOTIDINE 20 MG/50 ML IVPB 20 MG/50 ML MG IVPB ONE ×2 (09:50→10:06)
[2022-02-19] MEDS ORDERED: ACETAMINOPHEN INJECTION 100 ML IVPB ONE (10:06)
[2022-02-19] MEDS ORDERED: ONDANSETRON 4 MG/2 ML VIAL ONE (10:06)
[2022-02-19 10:14] LABS: BASO % 0.3 % (0-2.0); HEMATOCRIT 50.3 % (35.4-49); HEMOGLOBIN 16.8 GM/dL (11.7-16.9); LYMPH % 16.4 % (8-40); MCH 30.1 pg (25.7-33.7); MCHC 33.4 g/dl (32.0-35.9); MEAN CELL VOLUME 90.3 fl (80-96); MEAN PLT VOLUME 7.8 fl (7.5-11.1); NEUT % 76.3 % (42.8-82.8); PLATELET COUNT 382 10^3/uL (134-434); RBC 5.57 M/mm3 (4.00-5.60); RDW 14.1 % (11.9-15.9); WHITE BLOOD COUNT 10.5 K/mm3 (4.0-10.0)
[2022-02-19 10:31] LABS: ALBUMIN 4.8 g/dl (3.4-5.0); CALCIUM 10.4 mg/dL (8.5-10.1)
[2022-02-19 10:34] LABS: CREATININE 1.3 mg/dL (0.55-1.3)
[2022-02-19 10:36] LABS: BILIRUBIN,TOTAL 1.4 mg/dL (0.2-1); TOT PROT 8.4 g/dl (6.4-8.2)
[2022-02-19] MEDS ORDERED: METOCLOPRAMIDE HCL INJECTION 10 MG/2 ML VIAL IVPB ONE (11:52)
[2022-02-19] MEDS ORDERED: METOCLOPRAMIDE HCL INJECTION 10 MG/2 ML VIAL ONE (12:06)
[2022-02-19 12:58] LABS: URINE APPEARANCE CLEAR; URINE BILIRUBIN NEGATIVE (NEGATIVE); URINE COLOR YELLOW; URINE GLUCOSE (UA) NEGATIVE (NEGATIVE); URINE KETONE 1+ (NEGATIVE)
[2022-02-19 13:00] LABS: PH,URINE 7.5 (5.0-8.0); URINE LEUK ESTERASE NEGATIVE (NEGATIVE); URINE NITRITE NEGATIVE (NEGATIVE); URINE PROTEIN TRACE (NEGATIVE); URINE UROBILINOGEN 0.2 mg/dL (0.2-1.0)
== END 2022-02-19 14:41 | disposition home or self-care (01) ==
LOC: JER 08:53
PROC: 3E033NZ Introduction of Analgesics, Hypnotics, Sedatives into Peripheral Vein, Percutaneous Approach (ICD-10-PCS; principal; 2022-02-19)
PROC: 3E033GC Introduction of Other Therapeutic Substance into Peripheral Vein, Percutaneous Approach (ICD-10-PCS; 2022-02-19)
DX: R11.2 Nausea with vomiting, unspecified (principal)
CPT/HCPCS: 0241U-QW; 36415; 80053; 81003; 83690; 85025; 87086; 93005; 93010; 99284-25

== ENCOUNTER → 2023-03-13 | Emergency (ER) | payer OTHER ==
[2023-03-13 12:32] VITALS: BP 105/62; PULSE 99; RESP 18; TEMP 97.8; BMI 22.1
== END | disposition left against medical advice (07) ==
LOC: JER 12:26 → JERFT 12:26
DX: R68.84 Jaw pain (principal)
CPT/HCPCS: 99282-25

== ENCOUNTER 2023-07-19 10:31 | Emergency (ER) | payer OTHER ==
[2023-07-19 11:02] VITALS: BP 159/92; PULSE 74; RESP 20; TEMP 98.5; BMI 22.4
[2023-07-19] MEDS ORDERED: ONDANSETRON *ODT* 4 MG TABLET ONE (11:26)
[2023-07-19] MEDS: ONDANSETRON *ODT* 4 MG TABLET SL ONE (11:28)
[2023-07-19] MEDS: ACETAMINOPHEN 1000 MG/100 ML BAG IVPB ONE (13:41)
[2023-07-19] MEDS: SODIUM CHLORIDE 0.9% 500 ML INFUS.BAG IV ONE (13:41)
[2023-07-19] MEDS ORDERED: HALOPERIDOL LACTATE 5 MG/ML ONE (13:42)
[2023-07-19] MEDS: HALOPERIDOL LACTATE 5 MG/ML IM ONE (13:48)
== END 2023-07-19 15:09 | disposition home or self-care (01) ==
LOC: JER 10:31
PROC: 3E023GC Introduction of Other Therapeutic Substance into Muscle, Percutaneous Approach (ICD-10-PCS; principal; 2023-07-19)
DX: R11.2 Nausea with vomiting, unspecified (principal); R10.13 Epigastric pain; F12.90 Cannabis use, unspecified, uncomplicated
CPT/HCPCS: 96372; 99284-25; Q0162

== ENCOUNTER 2023-07-20 01:03 | Emergency (ER) | payer OTHER ==
[2023-07-20 01:07] VITALS: RESP 18; BMI 22.4
[2023-07-20 05:17] VITALS: BP 144/93; PULSE 97; TEMP 98.4
[2023-07-20] MEDS ORDERED: KETOROLAC TROMETHAMINE 30 MG/1 ML VIAL ONE (05:48)
[2023-07-20] MEDS: KETOROLAC TROMETHAMINE 30 MG/1 ML VIAL IM ONE (05:55)
== END 2023-07-20 06:25 | disposition home or self-care (01) ==
LOC: JER 01:03
PROC: 3E0233Z Introduction of Anti-inflammatory into Muscle, Percutaneous Approach (ICD-10-PCS; principal; 2023-07-20)
DX: R68.84 Jaw pain (principal); M26.51 Abnormal jaw closure
CPT/HCPCS: 70486-TC; 99284-25